=== PATIENT | female | born 1985 | race Caucasian/White ===

== ENCOUNTER 2024-03-20 15:25 | Outpatient (RCR) | payer OTHER, SELFPAY ==
[2024-02-22 12:31] VITALS: BP 126/78; PULSE 97
[2024-02-29 16:35] VITALS: BP 128/77; PULSE 90
[2024-03-07 16:32] VITALS: BP 147/91; PULSE 94
[2024-03-07 17:08] LABS: Basophils Percent Auto 0.5 % (0.2-1.2); Eosinophils Absolute Auto 0.1 K/mm3 (0-0.3); Eosinophils Percent Auto 1.3 % (0-4.4); Hemoglobin 11.4 g/dL (12.0-15.0); Immature Granulocyte Absolute 0.05 K/mm3 (0.00-0.031); Immature Granulocyte Percent A 0.6 % (0-0.5); Lymphocytes Absolute Auto 2.18 K/mm3 (0.9-3.2); Lymphocytes Percent Auto 25.3 % (18.3-44.2); Mean Corpuscular HGB Conc 31.7 g/dl (32-36); Mean Corpuscular Hemoglobin 28.3 pg (26-34); Mean Corpuscular Volume 89.3 fl (80-100); Mean Platelet Volume 11.1 fl (7.4-10.4); Monocytes Absolute Auto 0.6 K/mm3 (0.1-0.6); Monocytes Percent Auto 6.7 % (2.6-8.5); Neutrophils Absolute Auto 5.7 K/mm3 (1.3-6.7); Neutrophils Percent Auto 65.6 % (45.5-73.1); Platelet Count Result 171 k/mm3 (150-375); Red Blood Count 4.03 M/mm3 (4.2-5.4); Red Cell Distribution Width 16.5 % (11.5-14.5); White Blood Count 8.6 K/mm3 (4.5-10.0)
[2024-03-07 17:12] LABS: Add Urine Microscopic? NO; Appearance Urine Clear (Clear); Bilirubin Urine Negative (Negative); Blood Urine Negative (Negative); Color Urine Yellow (Yellow); Glucose Urine UA Negative (Negative); Ketones Urine 1+ mg/dL (Negative); Leukocyte Esterase Ur Negative LEU/UL (Negative); Nitrate Urine Negative (Negative); Protein Urine Negative (Negative); Specific Grav Ur 1.015 (1.001-1.035); Urobilinogen Urine 0.2 mg/dL (<2.0); pH Urine 6.5 (5.0-9.0)
[2024-03-07 17:19] LABS: Alanine Aminotransferase 13 U/L (6-35); Albumin Level 3.5 g/dL (3.5-5.1); Alkaline Phosphatase 125 U/L (38-126); Anion Gap 6 mmol/L (4-12); Aspartate Amino Transferase 19 U/L (14-36); Bilirubin,Total 0.3 mg/dL (0.2-1.3); Blood Urea Nitrogen 12 mg/dL (7-17); Calcium 9.2 mg/dL (8.4-10.2); Carbon Dioxide 19 mmol/L (22-30); Chloride 108 mmol/L (98-107); Estimated Glomerular Filt Rate > 60; Glucose 86 mg/dL (65-110); Potassium 3.8 mmol/L (3.4-5.0); Sodium 133 mmol/L (137-145); Uric Acid 3.4 mg/dL (2.5-7.5)
[2024-03-07 17:21] LABS: Creatinine Urine 66.2 mg/dL; Total Protein Urine Random 12 mg/dL; Ur Ttl Prot Creatinine Ratio 0.18 mg/mg (0-0.20)
--- NOTE | 2024-03-07 17:27 | PC.NURSE ---
Dr Snow notified that labs results, Ok to dc home.
[2024-03-14 16:40] VITALS: BP 156/88; PULSE 96
[2024-03-20 16:39] LABS: Basophils Percent Auto 0.4 % (0.2-1.2); Eosinophils Absolute Auto 0.1 K/mm3 (0-0.3); Eosinophils Percent Auto 0.8 % (0-4.4); Hematocrit 33.4 % (37.0-47.0); Hemoglobin 10.8 g/dL (12.0-15.0); Immature Granulocyte Absolute 0.03 K/mm3 (0.00-0.031); Immature Granulocyte Percent A 0.4 % (0-0.5); Lymphocytes Absolute Auto 2.06 K/mm3 (0.9-3.2); Lymphocytes Percent Auto 26.5 % (18.3-44.2); Mean Corpuscular HGB Conc 32.3 g/dl (32-36); Mean Corpuscular Hemoglobin 28.6 pg (26-34); Mean Corpuscular Volume 88.4 fl (80-100); Mean Platelet Volume 11.6 fl (7.4-10.4); Monocytes Absolute Auto 0.5 K/mm3 (0.1-0.6); Monocytes Percent Auto 6.7 % (2.6-8.5); Neutrophils Absolute Auto 5.1 K/mm3 (1.3-6.7); Neutrophils Percent Auto 65.2 % (45.5-73.1); Platelet Count Result 156 k/mm3 (150-375); Red Blood Count 3.78 M/mm3 (4.2-5.4); Red Cell Distribution Width 15.9 % (11.5-14.5); White Blood Count 7.8 K/mm3 (4.5-10.0)
[2024-03-20 16:53] LABS: Alanine Aminotransferase 12 U/L (6-35); Albumin Level 3.3 g/dL (3.5-5.1); Alkaline Phosphatase 133 U/L (38-126); Anion Gap 2 mmol/L (4-12); Aspartate Amino Transferase 20 U/L (14-36); Bilirubin,Total 0.3 mg/dL (0.2-1.3); Blood Urea Nitrogen 12 mg/dL (7-17); Calcium 8.9 mg/dL (8.4-10.2); Carbon Dioxide 21 mmol/L (22-30); Chloride 109 mmol/L (98-107); Estimated Glomerular Filt Rate > 60; Glucose 81 mg/dL (65-110); Potassium 4.2 mmol/L (3.4-5.0); Sodium 132 mmol/L (137-145); Uric Acid 4.8 mg/dL (2.5-7.5)
[2024-03-20 17:07] LABS: Creatinine Urine 119.9 mg/dL; Total Protein Urine Random 21 mg/dL; Ur Ttl Prot Creatinine Ratio 0.18 mg/mg (0-0.20)
[2024-03-20 17:50] VITALS: BP 153/89; PULSE 94
== END 2024-04-29 16:00 | disposition home or self-care (01) ==
LOC: ANHOBOP 15:25
PROVIDERS: Referring Provider Obstetrics & Gynecology; Visit Provider Obstetrics & Gynecology
DX: O24.419 Gestational diabetes mellitus in pregnancy, unspecified control (principal)
CPT/HCPCS: 36415; 59025; 80053; 81003; 82570; 84156; 84550; 85025

== ENCOUNTER 2024-03-24 04:39 | Inpatient (IN) | payer OTHER, SELFPAY ==
[2024-03-24] VITALS (30 sets, daily range): BP systolic 117–154; BP diastolic 75–120; PULSE 73–97; RESP 16; TEMP 36.8–37.1; O2SAT 97–100; BMI 45.1
[2024-03-24] MEDS: LACTATED RINGERS 1,000 ML 125 ML IV CONT ×2 (05:20→07:17)
--- NOTE | 2024-03-24 05:29 | LDADM ---
This patient, Krystina Bond, was admitted to Labor/Delivery/Recovery 120 on 03/24/24 at 04:39. Plans for labor, pain management and were discussed with patient. Patient/family oriented to hospital policies and general routines including ID bracelet, bed and alarms, visiting hours, pain management, procedures, bathroom and other care routines, personal items, smoking policy, room service/diet and guest tray routines, infant security routines, and visiting hours. Patient/Family are encouraged to report perceived risks to care and to ask questions if they do not understand what they are told or what they should do. See OBIX for further documentation.
[2024-03-24 05:39] LABS: Basophils Percent Auto 0.5 % (0.2-1.2); Eosinophils Absolute Auto 0.1 K/mm3 (0-0.3); Eosinophils Percent Auto 1.2 % (0-4.4); Hematocrit 33.9 % (37.0-47.0); Hemoglobin 11.4 g/dL (12.0-15.0); Immature Granulocyte Absolute 0.02 K/mm3 (0.00-0.031); Immature Granulocyte Percent A 0.3 % (0-0.5); Lymphocytes Absolute Auto 2.13 K/mm3 (0.9-3.2); Lymphocytes Percent Auto 28.1 % (18.3-44.2); Mean Corpuscular HGB Conc 33.6 g/dl (32-36); Mean Corpuscular Hemoglobin 28.9 pg (26-34); Mean Corpuscular Volume 85.8 fl (80-100); Mean Platelet Volume 11.7 fl (7.4-10.4); Monocytes Absolute Auto 0.5 K/mm3 (0.1-0.6); Monocytes Percent Auto 6.7 % (2.6-8.5); Neutrophils Absolute Auto 4.8 K/mm3 (1.3-6.7); Neutrophils Percent Auto 63.2 % (45.5-73.1); Platelet Count Result 156 k/mm3 (150-375); Red Blood Count 3.95 M/mm3 (4.2-5.4); Red Cell Distribution Width 15.8 % (11.5-14.5); White Blood Count 7.6 K/mm3 (4.5-10.0)
[2024-03-24] MEDS: ACETAMINOPHEN 500 MG TABLET 1000 MG PO (05:45)
[2024-03-24] MEDS: AZITHROMYCIN 500 MG/NS 250 ML 500 MG/250 ML BAG 250 MG IVPB (06:27)
[2024-03-24 06:36] LABS: Rapid Plasma Reagin Non-Reactive (NonReactive)
[2024-03-24 06:43] LABS: HIV 1/2 Ab P24 Ag Result Negative (Negative)
[2024-03-24] MEDS: ONDANSETRON INJ 4 MG/2 ML VIAL IV PUSH (07:12)
[2024-03-24] MEDS: FAMOTIDINE 20 MG/2 ML VIAL IV PUSH (07:12)
--- NOTE | 2024-03-24 07:28 | WPDANESEPPF ---
Anes - Initial Pre Proc Eval Procedure: Operation Date: 03/24/24 07:30 Proposed Procedures p Section - Fahad Hampton MD Date/Time: 03/24/24 07:28 Surgeon: Jonnie Douglas MD Pre Op Diagnosis: Leaking Patient Data Age: 38 Gender: F Height: 1.7 m Weight: 130.9 kg Last Vital Signs Pulse 97 03/24/24 07:00 BP 142/75 H 03/24/24 07:00 O2 Del Method Room Air 03/24/24 05:47 Allergies Allergy/AdvReac Type Severity Reaction Status Date / Time adhesive tape Allergy Itching Verified 03/24/24 05:59 Home Medications Medication Instructions Recorded Confirmed Type fexofenadine 180 mg tablet 180 mg PO HS 03/14/24 03/24/24 History glyburide 2.5 mg tablet 2.5 mg PO DAILY 03/14/24 03/24/24 History montelukast 10 mg tablet 10 mg PO HS 03/14/24 03/24/24 History vit no.95-ferrous 1 tablet PO HS 03/14/24 03/24/24 History fumarate 28 mg-folic acid 800 mcg tablet () cholecalciferol (vitamin D3) 125 125 mcg PO DAILY 03/20/24 03/24/24 History mcg (5,000 unit) tablet Laboratory Tests 03/24/24 05:35 WBC 7.6 K/mm3 (4.5-10.0) RBC 3.95 L M/mm3 (4.2-5.4) Hgb 11.4 L g/dL (12.0-15.0) Hct 33.9 L % (37.0-47.0) MCV 85.8 fl (80-100) MCH 28.9 pg (26-34) MCHC 33.6 g/dl (32-36) RDW 15.8 H % (11.5-14.5) Plt Count 156 k/mm3 (150-375) MPV 11.7 H fl (7.4-10.4) Immature Gran % (Auto) 0.3 % (0-0.5) Neut % (Auto) 63.2 % (45.5-73.1) Lymph % (Auto) 28.1 % (18.3-44.2) [place] % (Auto) 6.7 % (2.6-8.5) Eos % (Auto) 1.2 % (0-4.4) Baso % (Auto) 0.5 % (0.2-1.2) Lymph # (Auto) 2.13 K/mm3 (0.9-3.2) [place] # (Auto) 0.5 K/mm3 (0.1-0.6) Eos # (Auto) 0.1 K/mm3 (0-0.3) Baso # (Auto) 0.0 K/mm3 (0.0-0.1) Abs Immat Gran (auto) 0.02 K/mm3 (0.00-0.031) Absolute Neuts (auto) 4.8 K/mm3 (1.3-6.7) Absolute Nucleated RBC 0.000 K/mm3 (0.0-0.012) Nucleated RBC % 0.0 % (0.0-0.2) RPR Non-reactive (NonReactive) HIV 1&2 Ab/P24 Ag 4thGn Negative (Negative) Blood Type A Positive Antibody Screen Negative Patient hx anesthesia problems: none Family hx anesthesia problems: none Results Review: All pre-operative results and documents have been reviewed as part of the pre-operative evaluation. COUNTS INCLUDE 234 BEDS AT THE [facility] Family History Family History Other Asthma Fibromyalgia Social History Social History Smoking status: Never smoker Substance use: never Do You Feel Safe in your Home?: Yes Lack of Transportation: No Lack of Food: Never True Current Housing: I Have Housing Concerned About Future Housing: No Difficulty Paying Gas/Electric Bills: No Difficulty Paying for Meds: No Currently Unemployed: No Education: Associate Degree Difficulty w/ Childcare or Family Care: No Spiritual care concerns: No Anes - Eval Final PreProcedure Day of Procedure 03/24/24 07:28 Patient weight: morbidly obese Heart: regular rate and rhythm Lungs: clear to auscultation Airway: Mallampati scale class II Neurological: alert and oriented Last oral intake: >/= 8 hours ASA classification: III Emergent: no Anesthetic plan: proceed Anesthesia type and monitoring: regional spinal and standard monitoring Results Review: All pre-operative results and documents have been reviewed as part of the pre-operative evaluation. Informed Consent: The patient's anesthetic plan and its attendant risks and benefits were discussed with the patient/family/POA. Questions were solicited and answers provided to the satisfaction of the patient/family/POA.
--- NOTE | 2024-03-24 07:39 | P.HP_ITS ---
H&P: HPI History of Present Illness Date/Time: 03/24/24 07:39 Chief Complaint: Water broke Narrative: 38 y/o at 38 3/7 weeks here with gush of fluid. Rom Plus pos. GBS unknown. A2DM on glyburide in AM, not sure of dose. Asthma, well-controlled. Prior . EFW 7#2oz at 33 weeks. Accucheck here 79. Review of Systems Review of Systems: All systems reviewed & are unremarkable except as noted in HPI and below PMFSH Past Medical History Medical History Asthma Surgical History Surgical History History of delivery Family History Family History Other Asthma Fibromyalgia Social History Social History Smoking status: Never smoker Substance use: never Do You Feel Safe in your Home?: Yes Lack of Transportation: No Lack of Food: Never True Current Housing: I Have Housing Concerned About Future Housing: No Difficulty Paying Gas/Electric Bills: No Difficulty Paying for Meds: No Currently Unemployed: No Education: Associate Degree Difficulty w/ Childcare or Family Care: No Spiritual care concerns: No Meds Home Medications and Allergies Home Medications Medication Instructions Recorded Confirmed Type fexofenadine 180 mg tablet 180 mg PO HS 03/14/24 03/24/24 History glyburide 2.5 mg tablet 2.5 mg PO DAILY 03/14/24 03/24/24 History montelukast 10 mg tablet 10 mg PO HS 03/14/24 03/24/24 History vit no.95-ferrous 1 tablet PO HS 03/14/24 03/24/24 History fumarate 28 mg-folic acid 800 mcg tablet () cholecalciferol (vitamin D3) 125 125 mcg PO DAILY 03/20/24 03/24/24 History mcg (5,000 unit) tablet Allergies Allergy/AdvReac Type Severity Reaction Status Date / Time adhesive tape Allergy Itching Verified 03/24/24 05:59 Vital Signs Vital Signs - 24 hr 03/24/24 05:31 03/24/24 06:00 03/24/24 06:15 Pulse Rate 93 97 96 Blood Pressure 141/82 H 143/94 H 141/94 H Oxygen Delivery 03/24/24 06:30 03/24/24 07:00 03/24/24 07:30 Pulse Rate 92 97 95 Blood Pressure 147/78 H 142/75 H 146/94 H Oxygen Delivery 03/24/24 05:47 03/24/24 06:02 Pulse Rate 97 Blood Pressure 143/94 H Oxygen Delivery Room Air Exam Const: Orientation/consciousness: patient oriented x3 Other: Well-developed, well-nourished female in no acute distress. Neck: Thyroid: thyroid normal Lymphatic: no lymphadenopathy noted (in neck, axilla or inguinal nodes) Resp: Effort & Inspection: normal respiratory effort Auscultation: clear to auscultation bilaterally Cardio: Rate: regular rate Rhythm: regular rhythm Heart sounds: S1 normal heart sound present and S2 normal heart sound present GI: Other: ABD: Soft, nontender, nondistended, gravid. No guarding or rebound tenderness. No hepatosplenomegaly. : General: Yes no CVA tenderness Other: Cervix 1cm. Back/Spine/Pelvis: Back: no CVA tenderness Skin: General skin exam: normal color and no rashes or lesions noted Neuro: General: patient oriented x3 Extrem: Other: Extremities: nontender with no edema Psych: Mental Status: mental status grossly normal Affect: normal affect H&P: Results Labs Labs: Short CBC 03/24/24 Range/Units 05:35 WBC 7.6 (4.5-10.0) K/mm3 Hgb 11.4 L (12.0-15.0) g/dL Hct 33.9 L (37.0-47.0) % Plt Count 156 (150-375) k/mm3 Assessment and Plan Assessment and plan (1) History of delivery: Code(s): Z98.891 - History of uterine scar from previous surgery Status: Acute Assessment and Plan: A: SROM at 38 3/7 weeks with prior , A2DM, asthma; desiring repeat . P: Offered repeat . She understands risks of surgery to include risks of anesthesia, risks of pain, infection, bleeding, blood products, thromboembolic phenomena and damage to adjacent structures such as bowel, bladd er, ureters, blood vessels and nerves. She understands all these risks and elects to proceed with surgery. (2) SROM (spontaneous rupture of membranes): Status: Acute (3) Term : Code(s): Z34.90 - Encounter for supervision of normal , unspecified, unspecified trimester Status: Acute (4) Gestational diabetes: Code(s): O24.419 - Gestational diabetes mellitus in , unspecified control Status: Acute
[2024-03-24] MEDS: ceFAZolin 3 GM/D5W 100 ML 100 ML IVPB (07:43)
--- NOTE | 2024-03-24 08:33 | P.PCNOB_ITS ---
OB - Delivery Note Procedure Delivery date: 03/24/24 Pre-op diagnosis: Gestational Diabetes and Previous Delivery (1) IUP at 38 3/7 weeks, 2) Prior , 3) SROM, 4) A2DM) Post-op Diagnosis: Same Induction method: None Delivery monitor: External FHT and External Uterine Procedure Performed: Repeat Surgeon: Fahad Hampton MD Anesthesia type: Spinal Description of Procedure/Findings: The patient was taken to the operating room where she was prepared and draped in the usual sterile fashion in dorsal supine position with a leftward tilt. She received cefazolin preoperatively. Spinal anesthesia was found to be adequate. A Pfannenstiel skin incision was made along the previous scar line and was carried through to the underlying layer of the fascia. The fascia was incised in the midline and the incision was extended laterally. The fascia was dissecte d free of the underlying rectus muscles. The rectus muscles were in the midline. The peritoneum was identified, tented up and entered sharply. The peritoneal incision was extended superiorly and inferiorly with good visualization of the bladder. The bladder blade was placed. The vesicouterine peritoneum was identified, tented up and entered sharply. The incision was extended laterally and the bladder flap was developed. The bladder blade was replaced. The uterus was then incised sharply in a transverse fashion along the lower uterine segment. The incision was extended laterally. The infant's head was delivered atraumatically to the sterile field, followed by the body. The nose and mouth were bulb suctioned. After a delay, the cord was clamped and cut. The infant was handed off the field. Cord blood was collected. The placenta was removed manually and was passed off the field. The uterus was exteriorized and cleared of all clots and debris. The uterine incision was reapproximated using 0 Monocryl in a running, locked fashion. Excellent hemostasis resulted as did excellent reapproximation of the normal anatomy. The uterus was returned the abdomen. The pelvis was irrigated copiously with warmed normal saline. Rigorous hemostasis was assured. The fascial layer was reapproximated using 0 Vicryl in a running fashion. The skin was closed with a running, subcuticular stitch of 4 0 Vicryl. Dermaflex was applied externally. Sponge, lap, needle and instrument counts were correct. The patient was taken to the recovery room in stable condition. The went to the nursery in stable condition. I was present and scrubbed the entire procedure. Specimen: Yes (Cord blood, placenta) Estimated Blood Loss: 285 Drains: Yes (pace) Packing: No Pathology: Yes (placenta) Complications: None Condition: Stable Disposition: PACU Baby Date of : 03/24/24 Time of : 08:08 Gestational Age by Date: 38 gender: Female Weight (pounds): 9 Weight (ounces): 13 presentation: vertex Placenta delivery description: Manual Removal and Normal Configuration Cord Vessel Description: 3 Vessels and Delayed Cord Clamping score one minute: 8 score five minutes: 9
--- NOTE | 2024-03-24 08:36 | PM.OBDSVD ---
DS: Admitting Diagnosis Discharge Date 03/27/24 Admitting Diagnosis IUP at 38 3/7 weeks SROM Prior A2DM DS: Discharge Diagnosis Discharge Diagnosis (1) delivery delivered: Code(s): O82 - Encounter for delivery without indication Status: Acute OB - DS: Summary OB Procedures : None OB Procedures Intrapartum: OB Procedures: : None Peripartum Data Procedures: Procedures Operation Date: 03/24/24 07:30 <No data on this case meets the specified criteria> Time Spent with Patient Time attestation: Total time spent providing and/or coordinating discharge services: DS: Data Data Completed and Pending Labs on day of discharge: Labs from last 24 hours 03/24/24 05:35 WBC 7.6 RBC 3.95 L Hgb 11.4 L Hct 33.9 L MCV 85.8 MCH 28.9 MCHC 33.6 RDW 15.8 H Plt Count 156 MPV 11.7 H Immature Gran % (Auto) 0.3 Neut % (Auto) 63.2 Lymph % (Auto) 28.1 [place] % (Auto) 6.7 Eos % (Auto) 1.2 Baso % (Auto) 0.5 Lymph # (Auto) 2.13 [place] # (Auto) 0.5 Eos # (Auto) 0.1 Baso # (Auto) 0.0 Abs Immat Gran (auto) 0.02 Absolute Neuts (auto) 4.8 Absolute Nucleated RBC 0.000 Nucleated RBC % 0.0 RPR Non-reactive HIV 1&2 Ab/P24 Ag 4thGn Negative Blood Type A Positive Antibody Screen Negative Discharge Plan Discharge Attending physician on discharge: Jonnie Chen Discharging Clinician: Fahad Hampton Patient Disposition: Home, Self-Care Activity: may shower, may drive after 2 weeks and pelvic rest Diet: regular Wound Care Instructions: incision open to air Discharge Instructions: Education: Mom and Baby Guide Given to: Mother Follow-Up: Call your delivering provider's office for an appointment to be seen in: 4 Weeks Mom and baby should come to the [facility] for the follow-up appointment. Appointment Date/Time: March 29, 2024 at 10:00 am What to expect at your follow-up visit: Blood Pressure Check Physical Assessment Call [phone] if you are unable to keep your appointment time. BREAST CARE: * Wear a snug supportive bra. * For engorgement discomfort: Breast Feeding: * Apply warm moist washcloths * Express milk as needed to relieve engorgement * Wear loose clothing Bottle Feeding: * May apply ice packs * For sore nipples: * Identify correct latch-on * Apply warm moist washcloths before and after nursing * Air dry nipples after nursing * May apply Lansinoh cream to nipples ABDOMINAL INCISION: (if applicable) * Allow incision to air dry * Do NOT use lotions for powders on your incision * When showering, allow soap and water to run over the incision, but do not wash incision EPISIOTOMY/PERINEAL CARE: * Until bleeding stops, use your ilsa bottle after urinating * Change your pad frequently throughout the day * You may take sitz baths several times a day (fill your bathtub with warm water and soak for 20 minutes.) Do NOT bathe in the water * No tub baths until seen by your physician - You may shower ACTIVITY: * Rest as much as possible. * Do not exercise or lift anything heavier than your baby (such as laundry or other children.) * Avoid stairs or driving as much as possible. * Do not put anything into the vagina. No douching, tampons, or sexual activity until seen by physician. NOTIFY PHYSICIAN IF YOU HAVE ANY QUESTIONS OR IF ANY OF THE FOLLOWING SYMPTOMS OCCUR: * If your episiotomy or incision becomes red, swollen, or more painful than what you have experienced in the hospital. * If your vaginal bleeding becomes foul smelling. * If your vaginal bleeding becomes more heavy than a period or if your bleeding changes from pink to bright red. However, you may pass an occasional walnut-sized clot once or twice for the first week . * If you experience a sharp, shooting pain in you calves. * If you discover a hard, reddened area on your breast or if you experience flu-like symptoms. DIET: * Eat regular, well-balanced meals. * Drink plenty of fluids daily. If , drink to thirst. Call or return if temperature above 100.4? F, increased abdominal pain, increased vaginal bleeding or any new problems. Patient Language: [place] Stand Alone Forms: General Discharge Information Follow-up/Referrals: Jonnie Chen MD [Physician] - 4 Weeks Discharge Medications: New ibuprofen 600 mg tablet 600 mg PO Q6H PRN (Reason: cramps) Qty: 30 0RF hydrocodone-acetaminophen 5-325 mg tablet 1 - 2 tablet PO Q6H PRN (Reason: pain) Qty: 30 0RF nifedipine 60 mg tablet extended release 60 mg PO DAILY Qty: 30 0RF Continued cholecalciferol (vitamin D3) 125 mcg (5,000 unit) Tablet 125 mcg PO DAILY fexofenadine 180 mg Tablet 180 mg PO HS montelukast 10 mg Tablet 10 mg PO HS PNV cmb#95-ferrous fumarate-FA [] 28 mg iron- 800 mcg Tablet 1 tablet PO HS Discontinued glyburide 2.5 mg Tablet 2.5 mg PO DAILY Date of admission: 03/24/24 04:39 Primary Care Provider: UNKNOWN,DOCTOR Admitting Provider: Jonnie Chen Attending physician on admission: Jonnie Chen Condition: Stable
[2024-03-24 10:54] LABS: Glucose Point of Care 79 mg/dl (65-105)
[2024-03-24] MEDS: OXYTOCIN 30 UNITS/NS 500 ML 30 UNITS/500 ML BAG 125 UNITS IV CONT (10:57)
--- NOTE | 2024-03-24 11:00 | OBPPTRN ---
Patient transferred to post room #280 via stretcher. Support person present. Oriented to unit, room, information board, rooming in, admission packet and security measures. Patient verbalizes understanding.
[2024-03-24] MEDS: KETOROLAC 15 MG/ML VIAL (*BKC) IV PUSH ×3 (11:53→23:55)
[2024-03-24] MEDS: SIMETHICONE 80 MG TAB.CHEW PO ×2 (11:53→18:10)
[2024-03-24] MEDS: ACETAMINOPHEN 325 MG TABLET 650 MG PO ×3 (11:53→23:55)
--- NOTE | 2024-03-24 14:37 | PC.NURSE ---
1125. Met with patient to assess and discuss needs related to feeding. Mother states it is her intention to exclusively breastfeed. Encouraged mother to breastfeed 8-12 times in 24 hours (approximately every 2-3 hours), watching for early feeding cues. If is sleepy, unwrap and place baby skin to skin. Discussed signs that is effectively , i.e. sufficient voids and stools, jaundice within normal limits, <10% weight loss from . Mother educated on milk production, supply and demand, and expectations for in the immediate period. Mother was able to latch infant independently to the left breast in cross cradle position with no pain reported. We reviewed proper positioning and alignment at this time. Mom reports latched and fed for 1 hour post . She also reports she brought her 2 breastpumps from home and would like to help her go over how to use them before she goes home. She declined a [facility] referral at this time. Encouraged feeding on demand and feeding durations of 15 minutes or greater. Discussed breast/nipple care with good hand hygiene, signs of a correct latch, listening for infant swallows and documenting feedings on the feeding sheet. Mother instructed to call for assistance if infant will not feed every 3 hours, if there is discomfort with , or if mother has any other questions or concerns. resources provided including the Mom and Baby Guide and name/number on communication board. Mother verbalized understanding. Updated patient?s primary RN with education provided.?
[2024-03-24] MEDS: DEXTROSE 5%/0.45% SOD CHL 1,000 ML 125 ML IV CONT (15:24)
[2024-03-24] MEDS: DOCUSATE SODIUM 100 MG CAPSULE PO (18:10)
[2024-03-24] MEDS: MONTELUKAST SODIUM 10 MG TABLET PO (21:45)
[2024-03-25 05:00] LABS: Basophils Absolute Auto 0.1 K/mm3 (0.0-0.1); Basophils Percent Auto 0.6 % (0.2-1.2); Eosinophils Absolute Auto 0.1 K/mm3 (0-0.3); Eosinophils Percent Auto 1.2 % (0-4.4); Hematocrit 30.9 % (37.0-47.0); Hemoglobin 10.2 g/dL (12.0-15.0); Immature Granulocyte Absolute 0.04 K/mm3 (0.00-0.031); Immature Granulocyte Percent A 0.4 % (0-0.5); Lymphocytes Absolute Auto 2.22 K/mm3 (0.9-3.2); Lymphocytes Percent Auto 23.6 % (18.3-44.2); Mean Corpuscular Hemoglobin 29.1 pg (26-34); Mean Corpuscular Volume 88.3 fl (80-100); Mean Platelet Volume 11.5 fl (7.4-10.4); Monocytes Absolute Auto 0.7 K/mm3 (0.1-0.6); Monocytes Percent Auto 7.6 % (2.6-8.5); Neutrophils Absolute Auto 6.3 K/mm3 (1.3-6.7); Neutrophils Percent Auto 66.6 % (45.5-73.1); Platelet Count Result 151 k/mm3 (150-375); White Blood Count 9.4 K/mm3 (4.5-10.0)
[2024-03-25] MEDS: KETOROLAC 15 MG/ML VIAL (*BKC) IV PUSH (05:48)
[2024-03-25] MEDS: ACETAMINOPHEN 325 MG TABLET 650 MG PO ×3 (05:48→17:56)
[2024-03-25 08:00] VITALS: BP 155/98; PULSE 93; RESP 16; TEMP 36.8; O2SAT 100
[2024-03-25] MEDS: DOCUSATE SODIUM 100 MG CAPSULE PO ×2 (08:12→17:55)
[2024-03-25] MEDS: MULTIVIT/MIN/PREN/FOL AC/IRON TABLET 1 TAB PO (08:12)
[2024-03-25] MEDS: SIMETHICONE 80 MG TAB.CHEW PO ×3 (08:12→17:55)
--- NOTE | 2024-03-25 09:30 | PC.NURSE ---
Went to check in with patient to assess needs - patient off unit at this time. Education packet at bedside and contact information updated on the communication board.
--- NOTE | 2024-03-25 10:35 | PM.OBPNVD ---
OB - PN: Subj Subjective Date/time seen: 03/25/24 10:35 Narrative: Pain OK. Tolerating diet. OB - PN: Obj Data Labs 03/25/24 04:25 Labs: Laboratory Results - last 24 hr 03/24/24 03/25/24 07:34 04:25 WBC 9.4 RBC 3.50 L Hgb 10.2 L Hct 30.9 L MCV 88.3 MCH 29.1 MCHC 33.0 RDW 16.0 H Plt Count 151 MPV 11.5 H Immature Gran % (Auto) 0.4 Neut % (Auto) 66.6 Lymph % (Auto) 23.6 [place] % (Auto) 7.6 Eos % (Auto) 1.2 Baso % (Auto) 0.6 Lymph # (Auto) 2.22 [place] # (Auto) 0.7 H Eos # (Auto) 0.1 Baso # (Auto) 0.1 Abs Immat Gran (auto) 0.04 H Absolute Neuts (auto) 6.3 Absolute Nucleated RBC 0.000 Nucleated RBC % 0.0 POC Capillary Glucose 79 OB - PN A/P Plan day: 1 Comments: A: POD#1, doing well. P: Routine care. Exam Narrative: AVSS I/O OK ABD soft, nontender, fundus firm. Incision c/d/i. EXT nontender
--- NOTE | 2024-03-25 11:11 | WPDANLDPN2 ---
Anes-Prog Note L&D Date/Time: 03/25/24 11:11 Comfortable throughout: section Neuraxial method: spinal Epidural/Spinal procedure site: clean & non-tender Neuro status: Neuro function grossly intact. Cardiovascular status: normal Respiratory status: normal Airway patency: baseline Mental status: baseline Post-Op hydration status: normal Vital Signs: Last Vital Signs Temp 36.8 C 03/25/24 08:00 Pulse 93 03/25/24 08:00 Resp 16 03/25/24 08:00 BP 155/98 H 03/25/24 08:00 Pulse Ox 100 03/25/24 08:00 O2 Del Method Room Air 03/24/24 15:25 Pain score (VAS): 2 I/O: Intake & Output 03/24/24 03/25/24 03/25/24 23:59 07:59 15:59 Intake Total 100 1500 240 Output Total 600 2400 Balance -500 -900 240 Post-procedural complaints: none Patient feedback: Patient satisfied with anesthetic care.
--- NOTE | 2024-03-25 11:12 | WPDANLDNPN2 ---
Anes-Prog Note L&D-Neuraxial Date/Time: 03/25/24 11:12 Neuraxial medications: intrathecal PF morphine Opiod-related complaints: none Patient feedback: Patient satisfied with post-operative pain management.
[2024-03-25] MEDS: IBUPROFEN 600 MG TABLET PO ×2 (11:57→17:56)
[2024-03-25 12:15] VITALS: BP 142/88; PULSE 88
[2024-03-25] MEDS: HYDROcodone/acetaminophen (*CRX) 5-325 MG TABLET 1 TAB PO (15:26)
[2024-03-25 16:15] VITALS: BP 159/95
--- NOTE | 2024-03-25 18:35 | PC.NURSE ---
MOB and FOB transported to 1st floor nursery to visit with .
[2024-03-25 19:45] VITALS: BP 147/97; PULSE 93; RESP 20; TEMP 36.6; O2SAT 99
[2024-03-26] VITALS (8 sets, daily range): BP systolic 143–165; BP diastolic 91–108; PULSE 90–115; RESP 18–20; TEMP 36.9–37; O2SAT 99–100
[2024-03-26] MEDS: NIFEdipine 10 MG CAPSULE PO (00:20)
--- NOTE | 2024-03-26 02:00 | P.PNOB_ITS ---
OB - PN: Subj Subjective Date/time seen: 03/26/24 02:00 Narrative: In bathroom at time of rounds. Reportedly doing well. Pain is well managed, tolerating regular diet. Elevated bp readings, but no headache, upper abdominal pain or visual field changes. OB - PN: Obj Data Labs 03/25/24 04:25 Labs: Laboratory Results - last 24 hr 03/25/24 04:25 WBC 9.4 RBC 3.50 L Hgb 10.2 L Hct 30.9 L MCV 88.3 MCH 29.1 MCHC 33.0 RDW 16.0 H Plt Count 151 MPV 11.5 H Immature Gran % (Auto) 0.4 Neut % (Auto) 66.6 Lymph % (Auto) 23.6 [place] % (Auto) 7.6 Eos % (Auto) 1.2 Baso % (Auto) 0.6 Lymph # (Auto) 2.22 [place] # (Auto) 0.7 H Eos # (Auto) 0.1 Baso # (Auto) 0.1 Abs Immat Gran (auto) 0.04 H Absolute Neuts (auto) 6.3 Absolute Nucleated RBC 0.000 Nucleated RBC % 0.0 OB - PN A/P Assessment and Plan (1) delivery delivered: Code(s): O82 - Encounter for delivery without indication Status: Acute (2) hypertension: Code(s): O16.5 - Unspecified maternal hypertension, complicating the puerperium Status: Acute Plan day: 2 Comments: A: POD#2, doing well. Elevated BP. P: Start Procardia XL 30 mg po daily. Routine care.
[2024-03-26] MEDS: ACETAMINOPHEN 325 MG TABLET 650 MG PO ×5 (05:49→23:52)
[2024-03-26] MEDS: IBUPROFEN 600 MG TABLET PO ×5 (05:49→23:52)
[2024-03-26] MEDS: SIMETHICONE 80 MG TAB.CHEW PO ×3 (08:41→16:41)
[2024-03-26] MEDS: MULTIVIT/MIN/PREN/FOL AC/IRON TABLET 1 TAB PO (08:42)
[2024-03-26] MEDS: NIFEdipine 30 MG TAB.ER.24 PO ×2 (08:42→16:45)
[2024-03-26] MEDS: DOCUSATE SODIUM 100 MG CAPSULE PO ×2 (08:42→16:43)
[2024-03-26] MEDS: HYDROcodone/acetaminophen (*CRX) 5-325 MG TABLET 1 TAB PO (11:53)
[2024-03-26] MEDS: FLUTICASONE PROPIONATE 0.05% NA SPR 16 GM BTL (*BKC) 1 SPRAY NASAL (16:44)
[2024-03-26] MEDS: MONTELUKAST SODIUM 10 MG TABLET PO ×2 (21:58)
[2024-03-26] MEDS: LORATADINE 10 MG TABLET PO ×2 (21:58)
[2024-03-27 00:30] VITALS: BP 152/94; PULSE 103; RESP 16; TEMP 37.2; O2SAT 99
[2024-03-27] MEDS: IBUPROFEN 600 MG TABLET PO (05:19)
[2024-03-27] MEDS: ACETAMINOPHEN 325 MG TABLET 650 MG PO (05:19)
[2024-03-27 05:20] VITALS: BP 140/92; PULSE 99
--- NOTE | 2024-03-27 06:46 | PM.DS ---
DS: Admitting Diagnosis Discharge Date Admitting Diagnosis Term /previous section/labor/gestational hypertension/gestational diabetes DS: Discharge Diagnosis Discharge Diagnosis (1) hypertension: Code(s): O16.5 - Unspecified maternal hypertension, complicating the puerperium Status: Acute (2) delivery delivered: Code(s): O82 - Encounter for delivery without indication Status: Acute (3) History of delivery: Code(s): Z98.891 - History of uterine scar from previous surgery Status: Acute (4) SROM (spontaneous rupture of membranes): Status: Acute (5) Gestational diabetes: Code(s): O24.419 - Gestational diabetes mellitus in , unspecified control Status: Acute DS: Summary Hospital Course Reason for hospitalization: Patient was admitted in active labor and underwent low-transverse section Hospital Course: Patient's hospital course. She did develop hypertension XL 60 she was up, difficulty, eating regular diet, ambulating, generally without complaints. Time Spent with Patient Time attestation: Total time spent providing and/or coordinating discharge services: DS: Data Data Completed and Pending Pending studies at discharge: Pending at discharge 03/24/24 08:45 Surgical [PTH] Routine Discharge Plan Discharge Attending physician on discharge: Jonnie Chen Discharging Clinician: Fahad Hampton Patient Disposition: Home, Self-Care Activity: may shower, may drive after 2 weeks and pelvic rest Diet: regular Wound Care Instructions: incision open to air Discharge Instructions: Call or return if temperature above 100.4? F, increased abdominal pain, increased vaginal bleeding or any new problems. Stand Alone Forms: General Discharge Information Follow-up/Referrals: Jonnie Chen MD [Physician] - 4 Weeks Discharge Medications: New ibuprofen 600 mg tablet 600 mg PO Q6H PRN (Reason: cramps) Qty: 30 0RF hydrocodone-acetaminophen 5-325 mg tablet 1 - 2 tablet PO Q6H PRN (Reason: pain) Qty: 30 0RF nifedipine 60 mg tablet extended release 60 mg PO DAILY Qty: 30 0RF Continued cholecalciferol (vitamin D3) 125 mcg (5,000 unit) Tablet 125 mcg PO DAILY fexofenadine [Iqra] 180 mg Tablet 180 mg PO HS montelukast 10 mg Tablet 10 mg PO HS PNV cmb#95-ferrous fumarate-FA [] 28 mg iron- 800 mcg Tablet 1 tablet PO HS No Action glyburide 2.5 mg Tablet 2.5 mg PO DAILY Date of admission: 03/24/24 04:39 Primary Care Provider: UNKNOWN,DOCTOR Admitting Provider: Jonnie Chen Attending physician on admission: Jonnie Chen Condition: Stable
--- NOTE | 2024-03-27 06:48 | PM.OBPNVD ---
OB - PN: Subj Subjective Date/time seen: 03/27/24 06:48 Patient comments: no complaints and pain well controlled baby status: doing well and nursing well OB - PN: Obj Data Labs 03/25/24 04:25 OB - PN A/P Plan day: 3 Plan: routine care, discharge home and follow up 6 weeks (2 weeks) Time Spent With Patient Time: Total time spent is greater than 50% in coordination of care (as documented) at patient's floor/unit and/or counseling patient: Time with patient: less than 15 minutes Review of Systems Review of Systems: All systems reviewed & are unremarkable except as noted in HPI and below Exam Const: General: cooperative, healthy appearing and comfortable Nutritional Appearance: overweight Orientation/consciousness: oriented to person, oriented to place and oriented to time Resp: Effort & Inspection: normal respiratory effort Cardio: Rate: regular rate Rhythm: regular rhythm Heart sounds: S1 normal heart sound present and S2 normal heart sound present GI: Inspection: normal to inspection and incision (Wound is clean dry and intact)
[2024-03-27 08:10] VITALS: BP 144/85; PULSE 109; RESP 16; TEMP 36.4; O2SAT 99
[2024-03-27] MEDS: DOCUSATE SODIUM 100 MG CAPSULE PO (08:10)
[2024-03-27] MEDS: MULTIVIT/MIN/PREN/FOL AC/IRON TABLET 1 TAB PO (08:10)
[2024-03-27] MEDS: SIMETHICONE 80 MG TAB.CHEW PO (08:10)
[2024-03-27] MEDS: NIFEdipine 30 MG TAB.ER.24 60 MG PO (08:10)
--- NOTE | 2024-03-27 09:00 | PC.NURSE ---
Introductions were made, then consulted with patient to assess needs related to . Discussed with mother her?plans to feed?her and the?experience so far. She is putting baby to breast at most feedings, and then pumping and/or supplementing. She states that she has a blister on the right nipple from the first feeding. It is not painful any longer and has not gotten worse. Upon examination, the blister appears intact and not bleeding. Mom says she tried to breastfeed her first baby but never got a milk supply. Encouraged and educated mom on the importance of consistency and pumping throughout the day when she is giving bottles, especially if baby doesn't breastfeed. Mom has her own [employer] pump (wearable and electric) she is using but she also has a hospital pump in the room that she used initially. Resources provided for inpatient and outpatient services with the feeding sheet, mom/baby guide and name/number written on the communication board. Mother voiced understanding of information and will call if there is a request for assistance. Reported to the Primary RN.
[2024-03-27] MEDS: HYDROcodone/acetaminophen (*CRX) 5-325 MG TABLET 1 TAB PO (10:10)
[2024-03-29 09:45] VITALS: BP 161/99; PULSE 100; RESP 20; TEMP 36.4; O2SAT 99
== END 2024-03-27 12:10 | disposition home or self-care (01) | DRG 788 ==
LOC: ANHLDR 10:12 → ANHOB2 11:04
PROVIDERS: Admitting Provider Obstetrics & Gynecology; Visit Provider Obstetrics & Gynecology
PROC: 10D00Z1 Extraction of Products of Conception, Low, Open Approach (ICD-10-PCS; CPT 59514; principal; 2024-03-24 07:30)
DX: O24.429 Gestational diabetes mellitus in childbirth, unspecified control (principal); Z37.0 Single live birth; Z3A.38 38 weeks gestation of pregnancy; O34.211 Maternal care for low transverse scar from previous cesarean delivery; O99.52 Diseases of the respiratory system complicating childbirth; J45.909 Unspecified asthma, uncomplicated; O13.4 Gestational [pregnancy-induced] hypertension without significant proteinuria, complicating childbirth
CPT/HCPCS: 36415; 82948; 85025; 86592; 86703; 86850; 86900; 86901; 88307; A9270; G0432; J0456; J0690; J1885; J2274; J2405; J2590; J7120